=== PATIENT | male | born 1985 | race American Indian/Alaskan Native ===

== ENCOUNTER 2016-11-08 18:45 | Emergency (ER) | payer OTHER ==
[2016-11-08 18:55] VITALS: BP 114/92
--- NOTE | 2016-11-08 19:57 | XRay Report ---
FINAL REPORT PROCEDURE: XR ANKLE 3 RT TECHNIQUE: Three views of the right ankle are obtained HISTORY: right ankle injury and pain COMPARISON: No prior studies are available for comparison. FINDINGS: There is no fracture or dislocation. No arthritic changes are seen. Mild soft tissue swelling is seen. IMPRESSION: No fracture is seen.
--- NOTE | 2016-11-08 20:17 | Emergency Department Report ---
ED Lower Extremity HPI - General Chief Complaint: Extremity Injury, Lower Stated Complaint: ANKLE INJURY Time Seen by Provider: 11/08/16 20:04 Source: patient Mode of arrival: Ambulatory Limitations: No Limitations - History of Present Illness Initial Comments: 31-year-old male landed on ankle while playing basketball on Thursday. External rotation injury. Pain on the lateral malleolus. Able to bear weight. -: Sudden Injury: Ankle: Right Type of Injury: eversion Place: other Severity: mild Worsens With: weight bearing - Related Data Previous Rx's Medication Instructions Recorded Last Taken Type Ibuprofen [Motrin] 600 mg PO Q8H PRN #30 tablet 11/08/16 Unknown Rx Allergies Allergy/AdvReac Type Severity Reaction Status Date / Time No Known Allergies Allergy Unverified 11/08/16 18:51 ED Review of Systems ROS: Stated complaint: ANKLE INJURY Other details as noted in HPI Constitutional: no symptoms reported. denies: chills, fever Musculoskeletal: joint swelling. denies: back pain, arthralgia, myalgia Skin: denies: rash, lesions Neurological: denies: headache, weakness ED Past Medical Hx - Past Medical History Previous Medical History?: No - Surgical History Past Surgical History?: No - Social History Smoking Status: Current Every Day Smoker Substance Use Type: Alcohol - Medications Home Medications: Home Medications Medication Instructions Recorded Confirmed Last Taken Type Ibuprofen [Motrin] 600 mg PO Q8H PRN #30 tablet 11/08/16 Unknown Rx ED Physical Exam - General Limitations: No Limitations General appearance: alert, in no apparent distress - Head Head exam: Present: atraumatic, normocephalic - Expanded Lower Extremity Exam Right Ankle exam: Present: normal inspection, tenderness, swelling. Absent: abrasion , laceration, ecchymosis, deformity, crepidus, dislocation, erythema ED Course Vital Signs 11/08/16 18:52 Temperature 99.1 F Pulse Rate 77 Respiratory 20 Rate Blood Pressure 114/92 O2 Sat by Pulse 100 Oximetry ED Lower Extremity MDM - Radiology Data Radiology results: report reviewed, image reviewed - Medical Decision Making Patient with ankle injury on Thursday. Tender over lateral malleolus. Unremarkable x-ray. Plan to discharge with air cast. Critical care attestation.: If time is entered above; I have spent that time in minutes in the direct care of this critically ill patient, excluding procedure time. ED Disposition Clinical Impression: Ankle sprain Disposition: DC-01 TO HOME OR SELFCARE Is pt being admited?: No Condition: Stable Instructions: Ankle Sprain (ED) Prescriptions: Ibuprofen [Motrin] 600 mg PO Q8H PRN #30 tablet PRN Reason: Pain Referrals: PRIMARY CARE, [Primary Care Provider] - 3-5 Days
== END 2016-11-08 20:47 | disposition home or self-care (01) ==
LOC: ED 18:45
DX: S93.491A Sprain of other ligament of right ankle, initial encounter (principal); F17.200 Nicotine dependence, unspecified, uncomplicated; X58.XXXA Exposure to other specified factors, initial encounter; Y93.67 Activity, basketball; Y99.8 Other external cause status; Y92.320 Baseball field as the place of occurrence of the external cause

== ENCOUNTER 2017-02-08 19:04 | Emergency (ER) | payer OTHER ==
--- NOTE | 2017-02-08 20:39 | XRay Report ---
FINAL REPORT EXAM: XR ANKLE 2V LT HISTORY: injury/ LT ANKLE TECHNIQUE: Frontal and lateral views of left ankle. PRIORS: None. FINDINGS: No apparent fracture or dislocation. Mild degenerative spurring about tibial plafond and in the dorsal midfoot. Soft tissues grossly unremarkable. IMPRESSION: 1. No acute osseous abnormality. 2. Mild degenerative changes.
[2017-02-08] MEDS ORDERED: TORADOL IM ONE (22:06)
[2017-02-09 02:12] VITALS: BP 135/89
--- NOTE | 2017-02-09 19:37 | Emergency Department Report ---
ED Lower Extremity HPI - General Chief Complaint: Extremity Injury, Lower Stated Complaint: ANKLE PAIN Source: patient Mode of arrival: Ambulatory Limitations: No Limitations - History of Present Illness Initial Comments: 31 y/o M with no signficant PMhx presents with significant other complaining of injury to his left ankle that happened around 2-3 PM when he was playing basketball at the gym with friends. Pt states that he feels as if he twisted the ankle in some way and now has the pain to the heel and some radiation up to the middle of the left foot. 7/10 in severity Pt is still able to bear weight, he denies any numbness, tingling, redness, or bruising. He admits to mild swelling and increased pain with movement of the left ankle. Pt has not tried anything at this time for the pain. He has a hx of left ankle strain a few yearsback of the same left ankle. Pt denies any trauma to the head, LOC, fever , chills, chest pain, or SOB. Denies any low back pain, or saddle anesthsia, no bladder or bowel incontinences. NKDA. CRUZ Complaint: ankle injury (left) -: hour(s) (around 2-3 in the afternoon) Injury: Ankle: Left Type of Injury: other (pt does not recall the exact mechanism of injury but states that he thinks he twisted the ankle) Place: other (gym) Severity scale (0 -10): 7 Improves With: immobilization Worsens With: weight bearing Context: other (playing basketball) Associated Symptoms: swelling, ambulatory, other (denies any numbness, tingling , ) - Related Data Previous Rx's Medication Instructions Recorded Last Taken Type Ibuprofen [Motrin] 600 mg PO Q8H PRN #30 tablet 11/08/16 Unknown Rx Cyclobenzaprine HCl [Flexeril 5 MG 5 mg PO TID #15 tab 02/08/17 Unknown Rx TAB] Ibuprofen 800 mg PO TID PRN #15 tablet 02/08/17 Unknown Rx Allergies Allergy/AdvReac Type Severity Reaction Status Date / Time No Known Allergies Allergy Unverified 11/08/16 18:51 ED Review of Systems ROS: Stated complaint: ANKLE PAIN Other details as noted in HPI Constitutional: denies: chills, fever Eyes: denies: eye pain, eye discharge, vision change ENT: denies: ear pain, throat pain Respiratory: denies: cough, shortness of breath, wheezing Cardiovascular: denies: chest pain, palpitations Gastrointestinal: denies: abdominal pain, nausea, diarrhea Genitourinary: denies: urgency, dysuria Musculoskeletal: joint swelling, arthralgia, other (reports to swelling and pain at the medial aspect of the left foot). denies: back pain Skin: other (no change in color reported) Neurological: denies: headache, weakness, paresthesias Psychiatric: denies: anxiety, depression ED Past Medical Hx - Past Medical History Previous Medical History?: No - Surgical History Past Surgical History?: No - Social History Smoking Status: Never Smoker Substance Use Type: Alcohol - Medications Home Medications: Home Medications Medication Instructions Recorded Confirmed Last Taken Type Ibuprofen [Motrin] 600 mg PO Q8H PRN #30 tablet 11/08/16 Unknown Rx Cyclobenzaprine HCl [Flexeril 5 MG 5 mg PO TID #15 tab 02/08/17 Unknown Rx TAB] Ibuprofen 800 mg PO TID PRN #15 tablet 02/08/17 Unknown Rx ED Physical Exam - General Limitations: No Limitations General appearance: alert, in no apparent distress - Head Head exam: Present: atraumatic, normocephalic - Eye Eye exam: Present: normal appearance Pupils: Present: normal accommodation - ENT ENT exam: Present: mucous membranes moist - Neck Neck exam: Present: normal inspection, full ROM - Respiratory Respiratory exam: Present: normal lung sounds bilaterally. Absent: respiratory distress - Cardiovascular Cardiovascular Exam: Present: regular rate, normal rhythm. Absent: systolic murmur, diastolic murmur, rubs, gallop - Expanded Lower Extremity Exam Left Hip exam: Present: normal inspection, full ROM Upper Leg exam: Present: normal inspection, full ROM Knee exam: Present: normal inspection, full ROM Lower Leg exam: Present: normal inspection, full ROM Ankle exam: Present: full ROM, tenderness (TTP at the calcaneal region with some radiating up to the middle of the left foot, there was mild swelling noted at the site, negatve canada test, increased pain with flexion/extension, inversion and eversion however, able to perform, no obviously gap noted at the left achilles region, there was no obvious deformity, cap refill was normall, pulses were full, sensation and strength was intact, no foot drop), swelling Foot/Toe exam: Present: normal inspection, full ROM Neuro vascular tendon exam: Present: no vascular compromise Gait: Positive: not tested/not observed ED Course Vital Signs 02/08/17 02/08/17 19:18 23:22 Temperature 98.2 F 97.4 F L Pulse Rate 85 61 Respiratory 17 16 Rate Blood Pressure 138/74 Blood Pressure 135/89 [Right] O2 Sat by Pulse 97 99 Oximetry ED Lower Extremity MDM - Radiology Data Radiology results: image reviewed No apparent fractures or disclocations, mild degenerative spurring about the tibial plafond and in the dorsal midfoot. Soft tissues grossly unremarkable. - Medical Decision Making Xray of the ankle was indicative of degenerative changes of the left foot, consistent with where the patient was feeling the pain here in the ED. I verified with the radiology group that there was no new acute changes/ fractures. Therefore, I have treated pt with 30 mg of Toradol here in the ED and discharged him with Flexeril and Ibuprofen at home. He has been also been provided with stirrup and crutches with close follow-up with orthopedics to ensure no other underlying issue is present. Pt verbally stated that he will follow-up this week. Pt was discharged in stable condition, no resp distress, alert and oriented, hemodynamically and nervovascularly intact. Critical care attestation.: If time is entered above; I have spent that time in minutes in the direct care of this critically ill patient, excluding procedure time. ED Disposition Clinical Impression: Bone spur of left foot Left ankle pain Qualifiers: Chronicity: acute Qualified Code(s): M25.572 - Pain in left ankle and joints of left foot Disposition: -01 TO HOME OR SELFCARE Is pt being admited?: No Does the pt Need Aspirin: No Condition: Stable Instructions: Cyclobenzaprine (By mouth), RICE Therapy (ED) Additional Instructions: Please do not take the muscle relaxant when driving or operating heavy machinery as it may make you drowsy. RICE= rest, ice, compress, and elevate the joint. Please take the ibuprofen as needed for the pain. Pt advised to follow-up with Orthopedics within the week for further evaluation. Primary care provider follow-up within 1 week. Please return to the ER immediately with any acute worsening symptoms. Prescriptions: Cyclobenzaprine HCl [Flexeril 5 MG TAB] 5 mg PO TID #15 tab Ibuprofen 800 mg PO TID PRN #15 tablet PRN Reason: pain Referrals: [facility] [Outside] - 3-5 Days [facility] [Outside] - 3-5 Days PRIMARY CAREMD [Primary Care Provider] - 3-5 Days RAZIA BOURGEOIS MD [Staff Physician] - 3-5 Days Forms: Work/School Release Form(ED)
== END 2017-02-08 23:22 | disposition home or self-care (01) ==
LOC: ED 19:04
DX: M77.52 Other enthesopathy of left foot and ankle (principal)
CPT/HCPCS: 29515; 73600; 96372; 99283; J1885

== ENCOUNTER 2017-02-12 15:17 | Emergency (ER) | payer OTHER | END 2017-02-12 16:13 | disposition left against medical advice (07) | LOC: ED 15:17 | DX: Z53.21 Procedure and treatment not carried out due to patient leaving prior to being seen by health care provider (principal) ==

== ENCOUNTER 2017-04-09 07:39 | Emergency (ER) | payer SELFPAY ==
[2017-04-09 08:31] VITALS: BP 117/66
--- NOTE | 2017-04-09 11:07 | Emergency Department Report ---
ED General Adult HPI - General Chief complaint: Pain General Stated complaint: BACK, KNEE,AND ANKLE INJURY Time Seen by Provider: 04/09/17 10:57 Source: patient Mode of arrival: Ambulatory Limitations: No Limitations - History of Present Illness Initial comments: This is a 31 y.o. M, presents with pain to lower back, left knee, and left ankle from fall. States he was playing football yesterday with his nephews and was tackled to the ground. He fell on his back and twisted ankle to left side. He took 2 advil and went to work last night. He stayed at work for half the shift because pain was unbearable. States pain is 8/10 on pain scale, sharp and constant. Denies radiating, discoloration, deformity, or bruising. -: Sudden, Last night Location: back, lower extremity (LLE) Radiation: non-radiation Severity scale (0 -10): 8 Quality: aching, sharp, constant Consistency: intermittent Improves with: immobilization, medication Worsens with: movement Associated Symptoms: denies other symptoms Treatments Prior to Arrival: NSAID - Related Data Previous Rx's Medication Instructions Recorded Last Taken Type Ibuprofen [Motrin] 600 mg PO Q8H PRN #30 tablet 11/08/16 Unknown Rx Cyclobenzaprine HCl [Flexeril 5 MG 5 mg PO TID #15 tab 02/08/17 Unknown Rx TAB] Ibuprofen 800 mg PO TID PRN #15 tablet 02/08/17 Unknown Rx Ibuprofen [Motrin 600 MG tab] 600 mg PO Q8H PRN #30 tablet 03/03/17 Unknown Rx Cyclobenzaprine HCl 7.5 mg PO TID PRN 10 Days #30 tab 04/09/17 Unknown Rx [Cyclobenzaprine 7.5 MG TAB] Ibuprofen 800 mg PO Q6HR #30 tablet 04/09/17 Unknown Rx Allergies Allergy/AdvReac Type Severity Reaction Status Date / Time No Known Allergies Allergy Verified 04/09/17 08:26 ED Review of Systems ROS: Stated complaint: BACK, KNEE,AND ANKLE INJURY Other details as noted in HPI Constitutional: no symptoms reported. denies: chills, diaphoresis, fever, malaise, weakness Respiratory: no symptoms reported, see HPI. denies: cough, orthopnea, shortness of breath, SOB with exertion, SOB at rest, stridor, wheezing Cardiovascular: as per HPI. denies: chest pain, palpitations, dyspnea on exertion, orthopnea, edema, syncope, paroxysmal nocturnal dyspnea Gastrointestinal: as per HPI. denies: abdominal pain, nausea, vomiting, diarrhea, constipation, hematemesis, melena, hematochezia Musculoskeletal: back pain, arthralgia Skin: as per HPI. denies: rash, lesions, change in color, change in hair/nails , pruritus Neurological: as per HPI. denies: headache, weakness, numbness, paresthesias, confusion, abnormal gait, vertigo Psychiatric: as per HPI ED Past Medical Hx - Past Medical History Previous Medical History?: No - Surgical History Past Surgical History?: No - Social History Smoking Status: Never Smoker Substance Use Type: None - Medications Home Medications: Home Medications Medication Instructions Recorded Confirmed Last Taken Type Ibuprofen [Motrin] 600 mg PO Q8H PRN #30 tablet 11/08/16 Unknown Rx Cyclobenzaprine HCl [Flexeril 5 MG 5 mg PO TID #15 tab 02/08/17 Unknown Rx TAB] Ibuprofen 800 mg PO TID PRN #15 tablet 02/08/17 Unknown Rx Ibuprofen [Motrin 600 MG tab] 600 mg PO Q8H PRN #30 tablet 03/03/17 Unknown Rx Cyclobenzaprine HCl 7.5 mg PO TID PRN 10 Days #30 tab 04/09/17 Unknown Rx [Cyclobenzaprine 7.5 MG TAB] Ibuprofen 800 mg PO Q6HR #30 tablet 04/09/17 Unknown Rx ED Physical Exam - General Limitations: No Limitations General appearance: alert, in no apparent distress - Head Head exam: Present: normocephalic - Respiratory Respiratory exam: Present: normal lung sounds bilaterally. Absent: respiratory distress, wheezes, rales, rhonchi, chest wall tenderness, decreased breath sounds - Cardiovascular Cardiovascular Exam: Present: regular rate, normal rhythm, normal heart sounds. Absent: bradycardia, tachycardia, irregular rhythm, systolic murmur, rubs, gallop, S3, S4 - GI/Abdominal GI/Abdominal exam: Present: soft, normal bowel sounds. Absent: distended, tenderness, guarding, rebound, hyperactive bowel sounds, hypoactive bowel sounds , organomegaly - Extremities Exam Extremities exam: Present: normal capillary refill, other. Absent: pedal edema , joint swelling, calf tenderness - Expanded Lower Extremity Exam Left Upper Leg exam: Present: normal inspection Knee exam: Present: full ROM, tenderness, pain w/ pronation/supination, full knee extension. Absent: swelling, abrasion, laceration, ecchymosis, deformity, crepidus, dislocation, erythema, posterior draw sign, pain/laxity with valgus, pain/laxity with varus Lower Leg exam: Present: normal inspection, full ROM. Absent: tenderness, swelling, abrasion, laceration, ecchymosis, deformity, crepidus, dislocation, erythema, palpable cord, Maycol's sign Ankle exam: Present: full ROM, tenderness. Absent: swelling, abrasion, laceration, ecchymosis, deformity, crepidus, dislocation, erythema, anterior draw sign Foot/Toe exam: Present: normal inspection, full ROM. Absent: tenderness, swelling, abrasion, laceration, ecchymosis, deformity, crepidus, dislocation, erythema, amputation, puncture wound, foreign body, calcaneal tenderness, tenderness at base of 5th metatarsal, nail avulsion, subungual hematoma Neuro vascular tendon exam: Present: no vascular compromise. Absent: pulse deficit, abnormal cap refill, motor deficit, sensory deficit, tendon deficit, extremity cold to touch, pallor, abnormal 2-point discrimination, decreased fine /light touch, foot drop, peroneal nerve deficit, significant pain with passive ROM of distal joint Gait: Positive: observed and limited by pain - Back Exam Back exam: Present: full ROM, muscle spasm - Neurological Exam Neurological exam: Present: alert, oriented X3, CN II-XII intact, normal gait, reflexes normal - Psychiatric Psychiatric exam: Present: normal affect, normal mood. Absent: depressed, agitated, anxious, flat affect, manic, homicidal ideation, suicidal ideation - Skin Skin exam: Present: warm, dry, intact. Absent: cyanosis, diaphoretic, erythema , pallor, abrasion, ecchymosis ED Course Vital Signs 04/09/17 04/09/17 08:28 11:49 Temperature 99.3 F Pulse Rate 67 Respiratory 18 16 Rate Blood Pressure 117/66 O2 Sat by Pulse 97 Oximetry Critical care attestation.: If time is entered above; I have spent that time in minutes in the direct care of this critically ill patient, excluding procedure time. ED Disposition Clinical Impression: Low back sprain Qualifiers: Encounter type: initial encounter Qualified Code(s): S33.9XXA - Sprain of unspecified parts of lumbar spine and pelvis, initial encounter Left knee sprain Qualifiers: Encounter type: initial encounter Involved ligament of knee: medial collateral ligament Qualified Code(s): S83.412A - Sprain of medial collateral ligament of left knee, initial encounter Sprain of left medial ankle joint Qualifiers: Encounter type: initial encounter Qualified Code(s): S93.422A - Sprain of deltoid ligament of left ankle, initial encounter Disposition: TO HOME OR SELFCARE Is pt being admited?: No Does the pt Need Aspirin: No Condition: Stable Instructions: Low Back Strain (ED), Ankle Exercises (GEN) Additional Instructions: Rest, compress left ankle and knee, ice on for 15 minutes, and elevate left lower extremity while sitting. Prescriptions: Cyclobenzaprine HCl [Cyclobenzaprine 7.5 MG TAB] 7.5 mg PO TID PRN 10 Days #30 tab PRN Reason: Muscle Spasm Ibuprofen 800 mg PO Q6HR #30 tablet Referrals: [facility] [Outside] - 3-5 Days [facility] [Outside] - 3-5 Days Forms: Accompanied Note Time of Disposition: 12:07 Print Language: AZERBAIJANI
[2017-04-09] MEDS ORDERED: ULTRAM PO ONE (11:27)
--- NOTE | 2017-04-09 14:58 | XRay Report ---
LEFT KNEE RADIOGRAPHS INDICATION: Left knee pain. COMPARISON: 03/03/2017. FINDINGS: AP, lateral and oblique left knee radiographs demonstrate intact bony articulation and appearance. Normal soft tissues without evidence of suprapatellar effusion. CONCLUSION: No acute left knee radiographic abnormality or significant interval change. Please correlate. Thank you for the opportunity to participate in this patient's care.
--- NOTE | 2017-04-09 15:00 | XRay Report ---
LUMBAR SPINE RADIOGRAPHS: INDICATION: Low back pain. COMPARISON: 03/03/2017. FINDINGS: AP and lateral lumbar spine radiographs demonstrate preserved vertebral body stature, alignment and disc heights, except for L5-S1 disc narrowing not excluded. Nonobstructive bowel gas pattern. Normal bilateral SI joints. CONCLUSION: No acute lumbar radiographic abnormality with L5-S1 disc degeneration questioned, as described. Please correlate. Thank you for the opportunity to participate in this patient's care.
--- NOTE | 2017-04-09 15:02 | XRay Report ---
LEFT ANKLE RADIOGRAPHS INDICATION: Left ankle pain. COMPARISON: 02/08/2017. FINDINGS: AP, lateral and oblique left ankle radiographs demonstrate intact mortise, malleoli and talar dome contour. Stable soft tissues. Mild dorsal midfoot spurring may again be noted. CONCLUSION: No acute left ankle bony abnormality or significant interval change. Thank you for the opportunity to participate in this patient's care.
== END 2017-04-09 13:54 | disposition home or self-care (01) ==
LOC: ED 07:39
DX: S33.5XXA Sprain of ligaments of lumbar spine, initial encounter (principal); S83.92XA Sprain of unspecified site of left knee, initial encounter; S93.422A Sprain of deltoid ligament of left ankle, initial encounter; W18.39XA Other fall on same level, initial encounter; Y93.61 Activity, american tackle football; Y92.89 Other specified places as the place of occurrence of the external cause; Y99.8 Other external cause status
CPT/HCPCS: 72100; 99283

== ENCOUNTER 2018-07-15 11:21 | Emergency (ER) | payer SELFPAY ==
[2018-07-15] MEDS ORDERED: ZOFRAN IV ONE (11:40)
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
[2018-07-15 11:50] LABS: Basophils # (Auto) 0.1 K/mm3 (0.0-0.1); Basophils % (Auto) 1.6 % (0.0-1.8); Eosinophils % (Auto) 1.2 % (0.0-4.3); Hematocrit 45.2 % (35.5-45.6); Hemoglobin 15.2 gm/dl (11.8-15.2); Lymphocytes # (Auto) 1.7 K/mm3 (1.2-5.4); Lymphocytes % (Auto) 44.6 % (13.4-35.0); Mean Corpuscular HGB Conc 34 % (32-34); Mean Corpuscular Volume 84 fl (84-94); Monocytes # (Auto) 0.3 K/mm3 (0.0-0.8); Monocytes % (Auto) 6.9 % (0.0-7.3); Platelet Count 250 K/mm3 (140-440); Red Blood Count 5.39 M/mm3 (3.65-5.03); Red Cell Distribution Width 13.9 % (13.2-15.2)
[2018-07-15 12:01] LABS: INR 0.89 (0.87-1.13); Partial Thromboplastin Time 23.3 Sec. (24.2-36.6)
[2018-07-15 12:05] LABS: Alanine Aminotransferase 39 units/L (7-56); Albumin 4.3 g/dL (3.9-5); BUN/Creatinine Ratio 13; Blood Urea Nitrogen 12 mg/dL (9-20); Calcium 9.3 mg/dL (8.4-10.2); Hemolysis Index 43
[2018-07-15] MEDS ORDERED: MORPHINE IV ONE ×2 (12:56→13:53)
[2018-07-15] MEDS ORDERED: TORADOL IV ONE (12:57)
[2018-07-15 13:27] VITALS: BP 134/78
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
== END 2018-07-15 16:03 | disposition home or self-care (01) ==
LOC: ED 11:21
DX: S06.0X9A Concussion with loss of consciousness of unspecified duration, initial encounter (principal); S39.012A Strain of muscle, fascia and tendon of lower back, initial encounter; W17.89XA Other fall from one level to another, initial encounter; Y93.89 Activity, other specified; Y92.89 Other specified places as the place of occurrence of the external cause; Y99.8 Other external cause status
CPT/HCPCS: 36415; 70450; 71260; 72125; 74177; 80053; 85025; 85610; 85730; 86850; 86900; 86901; 96374; 96375; 96376; 99284; J1885; J2270; J2405; Q9967